=== PATIENT | male | born 1985 | race Caucasian/White ===

== ENCOUNTER 2017-05-17 18:07 | Emergency (ER) | payer SELFPAY ==
[2017-05-17 18:33] VITALS: TEMP 97.5
[2017-05-17] MEDS ORDERED: ACETAMINOPHEN 500 MG TAB PO ONE (18:33)
[2017-05-17] MEDS ORDERED: IBUPROFEN 600 MG TAB PO ONE (18:33)
--- NOTE | 2017-05-17 20:05 | EDPHY ---
H & P Stated Complaint: Sores on feet, L knee pain. Time Seen by Provider: 05/17/17 20:04 - Personal History Current Tetanus/Diphtheria Vaccine: Unsure Current Tetanus Diphtheria and Acellular Pertussis (TDAP): Unsure - Medical/Surgical History Hx Asthma: No Hx Chronic Respiratory Disease: No Hx Diabetes: No Hx Cardiac Disease: No Hx Renal Disease: No Hx Cirrhosis: No Hx Alcoholism: No Hx HIV/AIDS: No Hx Splenectomy or Spleen Trauma: No Other PMH: L ACL/Meniscus/MCL. - Social History Smoking Status: Heavy smoker Constitutional: Initial Vital Signs Temperature (C) 36.4 C 05/17/17 18:29 Heart Rate 98 05/17/17 18:29 Respiratory Rate 18 05/17/17 18:29 Blood Pressure 136/82 H 05/17/17 18:29 O2 Sat (%) 95 05/17/17 18:29 O2 Delivery Mode Room Air Allergies/Adverse Reactions: No Known Allergies Allergy (Unverified 05/17/17 18:33) Home Medications: Medication Instructions Recorded oxyCODONE IR [Oxycodone Ir (*)] 5 - 10 mg PO Q6 PRN #20 tab 05/17/17 Medical Decision Making ED Course/Re-evaluation: CHIEF COMPLAINT: Bilateral foot pain, left knee pain HISTORY OF PRESENT ILLNESS: The patient is a 32 y/o male complaining of sore feet after walking several miles in cowboy boots in the last couple days. He also complains of left knee pain that developed while climbing a ladder. He heard a lot of "popping" as he was descending the ladder and is concerned he reinjured his knee at the site of a previous ACL/MCL repair one year ago. He has been able to walk, but with some pain. He denies any recent illness, fever, or other trauma. REVIEW OF SYSTEMS: A 10 point review of systems was performed and is negative with the exception of the elements mentioned in the history of present illness. PHYSICAL EXAM: HR, BP, O2 Sat, RR. Temp noted General Appearance: Alert, well hydrated, appropriate, and non-toxic appearing. Head: Atraumatic without scalp tenderness or obvious injury Eyes: Pupils equal, round, reactive to light and accommodation, EOMI, no trauma , no injection. Nose: Atraumatic, no rhinorrhea, clear. Throat: Mucus membranes moist. Neck: Supple Respiratory: No retractions, no distress, no wheezes, and no accessory muscle use. Lungs are clear to auscultation bilaterally. Cardiovascular: Regular rate and rhythm, no murmurs, rubs, or gallops. Good capillary refill all extremities. Gastrointestinal: Abdomen is soft, nontender, non-distended, no masses, no rebound, no guarding, no peritoneal signs. Musculoskeletal: Some pain with MCL stress of left knee. Normal active ROM of all extremities, atraumatic. Neurological: Alert, appropriate, and interactive. Nonfocal neuro exam. Skin: No rashes, good turgor, no nodules on palpation. Excoriated skin along plantar aspect of both feet. Past medical history: denies Past surgical history: Left MCL/ACL/meniscus surgery Family history: noncontributory Social history: From [place]. Has a residence. DIFFERENTIAL DIAGNOSIS: The differential diagnosis for the patient's knee injury included but was not limited to fracture, ligamentous injury, contusion, muscular strain, and meniscus injury. MEDICAL DECISION MAKING: This is a 32 y/o male who presents with bilateral foot soreness and left knee pain onset this week. He has some pain with stress of his MCL and has bilateral excoriation of his plantar aspects. No indication for imaging. Plan for knee immobilizer, pain meds, and ortho followup. Return precautions given. He is comfortable with this plan. - Data Points Medications Given: Discontinued Medications Acetaminophen (Tylenol) 1,000 mg PO EDNOW ONE Stop: 05/17/17 18:34 Last Admin: 05/17/17 18:36 Dose: 1,000 mg Ibuprofen (Motrin) 600 mg PO EDNOW ONE Stop: 05/17/17 18:34 Last Admin: 05/17/17 18:36 Dose: 600 mg Departure - Departure Disposition: Home, Routine, Self-Care Clinical Impression: Bilateral foot pain Knee MCL sprain Qualifiers: Encounter type: initial encounter Laterality: left Qualified Code(s): S83.412A - Sprain of medial collateral ligament of left knee, initial encounter ACL sprain Qualifiers: Encounter type: initial encounter Laterality: left Qualified Code(s): S83.512A - Sprain of anterior cruciate ligament of left knee, initial encounter Condition: Good Instructions: Knee Sprain (ED), Knee Immobilizer (ED) Additional Instructions: 1. Take 800mg ibuprofen every 6-8 hours for pain and inflammation for no longer than one week. 2. Use OxyIR for pain uncontrolled by ibuprofen. 3. Wear knee immobilizer for support until follow up with orthopedist. 4. Follow up with Dr. Stratton, orthopedist, in the next week. 5. Follow up with [facility] to establish primary care in the area. Referrals: Dwight Stratton MD [Medical Doctor] - As per Instructions [facility],. [Clinic] - As per Instructions Prescriptions: oxyCODONE IR [Oxycodone Ir (*)] 5 - 10 mg PO Q6 PRN #20 tab PRN Reason: Pain, Severe Report Scribed for: Hunter Crouch Report Scribed by: Ivette Pickard Date of Report: 05/17/17 Time of Report: 20:14
[2017-05-17] MEDS ORDERED: OXYCODONE/APAP 5/325MG PREPACK#4 BTL TAKEHOME ONE (20:12)
[2017-05-17 20:33] VITALS: BP 129/78; PULSE 88; RESP 16; O2SAT 96
== END 2017-05-17 20:33 | disposition home or self-care (01) ==
DX: S83.412A Sprain of medial collateral ligament of left knee, initial encounter (principal); S83.512A Sprain of anterior cruciate ligament of left knee, initial encounter; F17.200 Nicotine dependence, unspecified, uncomplicated; S99.921A Unspecified injury of right foot, initial encounter; S99.922A Unspecified injury of left foot, initial encounter; X58.XXXA Exposure to other specified factors, initial encounter; Y99.8 Other external cause status; Y93.01 Activity, walking, marching and hiking
CPT/HCPCS: L1830

== ENCOUNTER 2017-05-25 14:31 | Emergency (ER) | payer OTHER ==
[2017-05-25] MEDS ORDERED: LORazepam 1 MG TAB PO ONE (14:57)
--- NOTE | 2017-05-25 15:03 | EDPHY ---
H & P Stated Complaint: si, meth use/addiction - Personal History Current Tetanus/Diphtheria Vaccine: Yes - Medical/Surgical History Hx Asthma: No Hx Chronic Respiratory Disease: No Hx Diabetes: No Hx Cardiac Disease: No Hx Renal Disease: No Hx Cirrhosis: No Hx Alcoholism: No Hx HIV/AIDS: No Hx Splenectomy or Spleen Trauma: No Other PMH: L ACL/Meniscus/MCL. meth use - Social History Smoking Status: Heavy smoker HPI/ROS: CHIEF COMPLAINT: Mental Health Evaluation HISTORY OF PRESENT ILLNESS: This patient is a 32 year old male with history of schizophrenia and methamphetamine abuse arriving by cab requesting help with placement to relieve his addiction. He initially visited the chapel here in the hospital around two hours ago, and the soils technician convinced him to present to the emergency department for further assistance. He would like to find a place where he can become stable and take his medication without access to illicit substances. He has been off his medication for schizophrenia, likely around one month, and is unsure of his regular dosage. His last methamphetamine use was this morning. The patient states he has been feeling down and that he has attempted to harm himself in the past by medication overdose. He states he has not attempted to hurt himself today. He states he would not hurt anyone else unless they tried to hurt him. He is feeling paranoid and endorses hearing words which influence his thoughts. He has had various concerns about his surroundings, asking "Why are they out there laughing at me?", "What are you going to do to me?", and " Why is there a camera in here?". He denies any recent illness, cough, cold, or vomiting. REVIEW OF SYSTEMS: A ten point review of systems was performed and is negative with the exception of the items mentioned in the HPI. (Beronica Olivarez) - Medical/Surgical History PMH: 1. Schizophrenia 2. Left ACL/MCL meniscus surgery. (Beronica Olivarez) - Social History Additional Social History: Video Game Designer at bedside. Recently moved from the [facility]. Current methamphetamine abuse. No alcohol use. Current cigarette smoker. (Beronica Olivarez) - Physical Exam Exam: General Appearance: Alert. Vital signs reviewed. Blood pressure 151/109, heart rate 109 at triage. Eyes: Pupils equal and round, no conjunctival injection, no discharge. Anicteric. ENT, Mouth: Mucous membranes are moist, no oropharyngeal erythema or edema. Neck: No lymphadenopathy, supple. Respiratory: Lungs are clear to auscultation; no wheezes, rales, or rhonchi. Cardiovascular: Slightly tachycardic, regular rhythm; no murmur, rub, or gallop. Gastrointestinal: Abdomen is soft and nontender, no masses or organomegaly, bowel sounds normal. Skin: Warm and dry, no rashes on exposed skin, normal color. Back: Nontender to palpation over the thoracolumbar spine. No CVAT. Extremities: No lower extremity edema, no calf tenderness or swelling. Neurological: Alert and oriented. Moving all four extremities easily and equally. Psychiatric: Normal affect. (Beronica Olivarez) Constitutional: Initial Vital Signs Temperature (C) 36.8 C 05/25/17 14:42 Heart Rate 109 H 05/25/17 14:42 Respiratory Rate 16 05/25/17 14:42 Blood Pressure 151/109 H 05/25/17 14:42 O2 Sat (%) 95 05/25/17 14:42 O2 Delivery Mode Room Air Allergies/Adverse Reactions: No Known Allergies Allergy (Unverified 05/17/17 18:33) Home Medications: Medication Instructions Recorded NK [No Known Home Meds] 05/25/17 Medical Decision Making ED Course/Re-evaluation: 32 year old male with history of schizophrenia presents with suicidal ideation following methamphetamine use this morning. 15:20 Placed patient on M1 hold following initial examination. The patient is underactive, under-talkative, and reserved. He is having ideas of being persecuted, feels people are watching him and talking about him, and hearing words which he attaches thoughts to. He has history of schizophrenia, but has been unmedicated for around 1 month. He is cooperative and seems earnest in his desire for help. 1mg PO Ativan administered. He has been placed on a 72 hour hold. I feel that he is, at this time, Gravely disabled nirmal danger to himself. Plan for UA, labs including CBC, BMP, UA tox screen, and EtOH. Plan to administer 10mg PO Zyprexa for symptom relief. The patient may take an additional 1mg PO Ativan if he desires. 17:26 Reassessed patient. 1800: Patient is expressing increasing paranoia. I have talked to him about the fact that he will likely be waiting through the night before mental health evaluation can be performed. His urine drug screen is positive for methamphetamine, which he admits to using. He is requesting help with both his psychiatric illness and his substance abuse. He is being given an additional 2 mg of Ativan. : Evaluation in progress. Patient continues with paranoia. He has been directable. His care will be transferred to Dr. Robles at 9:00 p.m. (Beronica Olivarez) 2100: The patient is signed out to me at change of shift by Dr. Olivarez. Patient is stable at this time. He is awaiting further evaluation. 2300: The patient is signed out to Dr. Glasgow at change of shift. (Chelsey Robles) 11:00 a.m.-this patient was seen and evaluated by mental health. At this point he is calm and cooperative and is not acutely psychotic. He denies homicidal or suicidal ideation. Mental health feels that he is appropriate for outpatient treatment. I agree with this assessment. (Payton Narvaez) Differential Diagnosis: I considered a differential diagnosis that includes but is not limited to substance abuse disorder, psychosis, paranoia, trevor, and depression. (Beronica Olivarez) Care Turn Over: 0 care assumed by me from Dr. Robles pending mental health evaluation and metabolism of the methamphetamine. [address] Narvaez pending mental health evaluation. (Jb Glasgow) - Data Points Laboratory Results: Laboratory Results 05/25/17 15:40 05/25/17 15:40 Medications Given: Discontinued Medications Lorazepam (Ativan) 2 mg PO EDNOW ONE Stop: 05/25/17 14:58 Last Admin: 05/25/17 15:19 Dose: 2 mg Lorazepam (Ativan) 2 mg PO EDNOW ONE Stop: 05/25/17 18:06 Last Admin: 05/25/17 19:49 Dose: 2 mg Olanzapine (Olanzapine) 10 mg PO ONCE ONE Stop: 05/25/17 15:25 Last Admin: 05/25/17 15:57 Dose: 10 mg Olanzapine (Zyprexa Zydis) 10 mg PO EDNOW ONE Stop: 05/25/17 21:32 Last Admin: 05/25/17 21:44 Dose: 10 mg Departure - Departure Disposition: Home, Routine, Self-Care Clinical Impression: Acute psychosis, Polysubstance abuse Condition: Good Instructions: Methamphetamine Abuse (ED), Suicide Prevention for Adults (ED) Referrals: NONE *PRIMARY CARE P,. [Primary Care Provider] - As per Instructions Report Scribed for: Beronica Olivarez Report Scribed by: Laina Hutchinson Date of Report: 05/25/17 Time of Report: 15:10 Physician Review and Approval Statement: 05/25/17 15:03 Portions of this note were transcribed by the medical apparatus model maker. I, Dr. Beronica Olivarez, personally performed the history, physical exam, and medical decision- making; and confirmed the accuracy of the information in the transcribed note. ( Beronica Olivarez)
[2017-05-25] MEDS ORDERED: OLANZapine 10 MG TAB PO ONE (15:24)
[2017-05-25] MEDS ORDERED: OLANZapine 5 MG TAB ONE ×2 (15:32→18:02)
[2017-05-25 15:58] LABS: % IMMATURE GRANULYOCYTES 0.4 % (0.0-1.1); ABSOLUTE IMMATURE GRANULOCYTES 0.04 10^3/uL (0.00-0.10); ADD DIFF? NO; ADD MORPH? NO; ADD SCAN? YES; ATYPICAL LYMPHOCYTE FLAG 10 (0-99); FRAGMENT RBC FLAG 0 (0-99); HEMATOCRIT 46.5 % (40.0-51.0); HEMOGLOBIN 16.3 g/dL (13.7-17.5); LEFT SHIFT FLG 0 (0-99); LIPEMIA HEMOLYSIS FLAG 90 (0-99); MEAN CELL HEMOGLOBIN 30.8 pg (27.9-34.1); MEAN CELL HEMOGLOBIN CONCENTR. 35.1 g/dL (32.4-36.7); MEAN CELL VOLUME 87.9 fL (81.5-99.8); MEAN PLATELET VOLUME 10.1 fL (8.7-11.7); PLATELET COUNT 254 10^3/uL (150-400); RED BLOOD CELL COUNT 5.29 10^6/uL (4.40-6.38)
[2017-05-25 15:59] LABS: PLATELET CLUMPS FLAG 300 (0-99)
[2017-05-25 16:30] LABS: SCAN NEGATIVE
[2017-05-25 16:42] LABS: ANION GAP 18 mEq/L (8-16); CALCIUM 10.3 mg/dL (8.5-10.4); CARBON DIOXIDE 15 mEq/l (22-31); CHLORIDE 108 mEq/L (97-110); CREATININE 0.9 mg/dL (0.7-1.3); ETHANOL SERUM < 10 mg/dL (0-10); GLOMERULAR FILTRATION RATE > 60; GLUCOSE 111 mg/dL (70-100); POTASSIUM 4.3 mEq/L (3.5-5.2); SODIUM 141 mEq/L (134-144); SPECIMEN HEMOLYSIS 108
[2017-05-25] MEDS: LORazepam 1 MG TAB PO ONE ×2 (18:32→19:49)
[2017-05-25] MEDS ORDERED: NICOTINE 21 MG/24 HR PATCH TD ONE (18:43)
[2017-05-25] MEDS ORDERED: NICOTINE POLACRILEX 2 MG GUM B ONE (18:43)
[2017-05-25] MEDS ORDERED: LORazepam 1 MG TAB ONE (19:35)
[2017-05-25] MEDS ORDERED: OLANZapine DISINTEGR 10 MG TAB ONE ×2 (21:18→21:30)
[2017-05-25] MEDS ORDERED: OLANZapine DISINTEGR 10 MG TAB PO ONE (21:31)
[2017-05-25 22:57] VITALS: RESP 16; TEMP 97.9
[2017-05-26 11:26] VITALS: BP 138/93; PULSE 94; O2SAT 98
== END 2017-05-26 11:26 | disposition home or self-care (01) ==
DX: F23 Brief psychotic disorder (principal); F19.10 Other psychoactive substance abuse, uncomplicated; F17.200 Nicotine dependence, unspecified, uncomplicated
CPT/HCPCS: 80305; G0480

== ENCOUNTER 2017-05-26 22:46 | Emergency (ER) | payer OTHER ==
[2017-05-26] MEDS ORDERED: LORazepam 1 MG TAB PO ONE (22:56)
--- NOTE | 2017-05-26 22:59 | EDPHY ---
H & P - Medical/Surgical History Hx Asthma: No Hx Chronic Respiratory Disease: No Hx Diabetes: No Hx Cardiac Disease: No Hx Renal Disease: No Hx Cirrhosis: No Hx Alcoholism: No Hx HIV/AIDS: No Hx Splenectomy or Spleen Trauma: No Other PMH: L ACL/Meniscus/MCL. meth use - Social History Smoking Status: Heavy smoker HPI/ROS: Chief Complaint: Paranoid, agitated, meth use HPI: 32-year-old male with a history of chronic meth use and associated paranoia is [facility] complaining of being paranoid and withdrawing from meth. Patient was seen in this emergency department last night after becoming paranoid and using meth. He had a mental health evaluation this morning at which time he was calm and was not feeling paranoid. He was discharged home and states that he proceeded to go out and use meth again today. He does not want to go to the [facility] because he is afraid someone there is going to kill him. He is feeling very paranoid now. States he has had multiple episodes of the same when he uses meth. Has never felt this way when he has not been using. Was clean for a month up to about a week ago. Denies any recent injuries. No fevers or chills. Is not currently feeling suicidal or homicidal. ROS: 10 point Review of Systems is negative except as noted in the HPI. PMH: Methamphetamine abuse Social History: Positive smoking, positive alcohol, positive for methamphetamine use Family History: non-contributory Physical Exam: Gen: Awake, Alert, anxious, agitated mildly HEENT: Nose: no rhinorrhea Eyes: PERRLA, EOMI Mouth: Moist mucosa Neck: Supple, no JVD Chest: nontender, lungs clear to auscultation Heart: S1, S2 normal, no murmur Abd: Soft, non-tender, no guarding Back: no CVA tenderness, no midline tenderness Ext: no edema, non-tender Skin: no rash Neuro: CN II-XII intact, Sensation grossly intact, Strength 5/5 in bilateral upper and lower extremities (Jb Glasgow) Constitutional: Initial Vital Signs Temperature (C) 37.7 C 05/26/17 23:00 Heart Rate 103 H 05/26/17 23:00 Respiratory Rate 18 05/26/17 23:00 Blood Pressure 172/105 H 05/26/17 23:00 O2 Sat (%) 98 05/26/17 23:00 O2 Delivery Mode Room Air Allergies/Adverse Reactions: No Known Allergies Allergy (Verified 05/26/17 23:33) Home Medications: Medication Instructions Recorded NK [No Known Home Meds] 05/25/17 Medical Decision Making ED Course/Re-evaluation: Patient has required multiple doses of Zyprexa and Ativan to calm him down. He has received a total 20 mg of Zyprexa and 8 mg of Ativan . He is now resting comfortably. Plan will be for discharge to home when he is metabolize the methamphetamine and is no longer paranoid. Patient was seen yesterday for the same presentation and had a mental health evaluation and was deemed safe after he cleared his meth. Care transferred to Dr. Crouch pending metabolism of methamphetamine and not paranoid. (Jb Glasgow) This patient was turned over to hi at shift change. This patient is awake alert and back at baseline. We will discharge him now. (Hunter Crouch) - Data Points Medications Given: Discontinued Medications Sodium Chloride (Ns) 1,000 mls @ 0 mls/hr IV ONCE ONE PRN Reason: Wide Open Stop: 05/27/17 03:48 Last Admin: 05/27/17 03:49 Dose: 1,000 mls Lorazepam (Ativan) 2 mg PO EDNOW ONE Stop: 05/26/17 22:57 Last Admin: 05/26/17 23:00 Dose: 2 mg Lorazepam (Ativan) 1 mg PO EDNOW ONE Stop: 05/27/17 01:44 Last Admin: 05/27/17 01:46 Dose: 1 mg Lorazepam (Ativan) 2 mg PO EDNOW ONE Stop: 05/27/17 02:33 Last Admin: 05/27/17 02:59 Dose: 2 mg Lorazepam (Ativan Injection) 2 mg IVP EDNOW ONE Stop: 05/27/17 02:49 Last Admin: 05/27/17 02:58 Dose: 2 mg Lorazepam (Ativan Injection) 2 mg IVP EDNOW ONE Stop: 05/27/17 03:41 Last Admin: 05/27/17 03:45 Dose: 2 mg Nicotine (Nicoderm Cq) 21 mg TD EDNOW ONE Stop: 05/27/17 02:40 Last Admin: 05/27/17 02:35 Dose: 21 mg Olanzapine (Olanzapine) 10 mg PO ONCE ONE Stop: 05/26/17 23:14 Last Admin: 05/26/17 23:26 Dose: 10 mg Olanzapine (Olanzapine) 5 mg PO ONCE ONE Stop: 05/27/17 00:51 Last Admin: 05/27/17 01:05 Dose: 5 mg Olanzapine (Zyprexa Zydis) 5 mg PO EDNOW ONE Stop: 05/27/17 01:44 Last Admin: 05/27/17 01:46 Dose: 5 mg Olanzapine (Zyprexa Zydis) 5 mg PO EDNOW ONE Stop: 05/27/17 02:33 Last Admin: 05/27/17 02:35 Dose: 5 mg Departure - Departure Disposition: Home, Routine, Self-Care Clinical Impression: Methamphetamine abuse Condition: Good Instructions: Methamphetamine Abuse (ED) Additional Instructions: Please seek help to stop using methamphetamine. Referrals: NONE *PRIMARY CARE P,. [Primary Care Provider] - As per Instructions
[2017-05-26] MEDS ORDERED: OLANZapine 10 MG TAB PO ONE (23:13)
[2017-05-26] MEDS ORDERED: OLANZapine 5 MG TAB ONE (23:23)
[2017-05-27] MEDS ORDERED: OLANZapine 5 MG TAB PO ONE (00:50)
[2017-05-27] MEDS ORDERED: LORazepam 1 MG TAB ONE ×2 (01:38→01:55)
[2017-05-27] MEDS ORDERED: OLANZapine DISINTEGR 5 MG TAB ONE (01:38)
[2017-05-27] MEDS ORDERED: LORazepam 1 MG TAB PO ONE ×2 (01:43→02:32)
[2017-05-27] MEDS ORDERED: OLANZapine DISINTEGR 5 MG TAB PO ONE ×2 (01:43→02:32)
[2017-05-27] MEDS ORDERED: NICOTINE 21 MG/24 HR PATCH TD ONE ×2 (02:02→02:39)
[2017-05-27] MEDS ORDERED: LORazepam 2 MG/ML INJ ONE (02:34)
[2017-05-27] MEDS ORDERED: LORazepam 2 MG/ML INJ IVP ONE ×2 (02:48→03:40)
[2017-05-27] MEDS ORDERED: NS 1,000 ML IV ONE (03:47)
[2017-05-27 10:02] VITALS: BP 123/71; PULSE 95; RESP 18; TEMP 97.5; O2SAT 97
== END 2017-05-27 10:02 | disposition home or self-care (01) ==
LOC: EDUNIT#
DX: F15.10 Other stimulant abuse, uncomplicated (principal); F17.200 Nicotine dependence, unspecified, uncomplicated
CPT/HCPCS: 96361; 96374; 96376; 99284; J2060

== ENCOUNTER 2017-06-21 18:57 | Emergency (ER) | payer OTHER ==
[2017-06-21 19:01] VITALS: O2SAT 95
[2017-06-21] MEDS ORDERED: PENICILLIN VK 250MG PREPACK#6 BTL TAKEHOME ONE (20:18)
[2017-06-21] MEDS ORDERED: HYDROCOD/APAP 5/325 PREPACK#6 BTL TAKEHOME ONE (20:18)
--- NOTE | 2017-06-21 20:19 | EDPHY ---
H & P Time Seen by Provider: 06/21/17 19:13 HPI/ROS: CHIEF COMPLAINT: toothache HISTORY OF PRESENT ILLNESS: 32-year-old male presents emergency department complaining of a toothache x1 month. Patient reports it has been intermittent and worsening recently. Ibuprofen is not helping. He denies fevers or chills. Patient reports drainage of pus around tooth. No difficulty breathing or swallowing. Patient states he has called multiple dentists office and they will not see him until he has already been taking antibiotics. He is a cigarette smoker. Smoking Status: Heavy smoker Physical Exam: GEN: Awake, alert, oriented, no acute distress RESP: nl resp effort HEENT: Poor dentition, left lower anterior molar with dental caries, mild erythema to gum line, no drainage, no obvious abscess. Uvula midline, no peritonsillar abscess MSK: Normal appearing SKIN: No rash or break in skin. Constitutional: Initial Vital Signs Temperature (C) 37.1 C 06/21/17 18:59 Heart Rate 117 H 06/21/17 18:59 Respiratory Rate 20 06/21/17 18:59 Blood Pressure 134/94 H 06/21/17 18:59 O2 Sat (%) 95 06/21/17 18:59 O2 Delivery Mode Room Air Allergies/Adverse Reactions: No Known Allergies Allergy (Verified 06/21/17 18:58) Home Medications: Medication Instructions Recorded Penicillin V Potassium [Pen Vk] 500 mg PO Q6H 9 Days 06/21/17 MDM/Departure - Depart Disposition: Home, Routine, Self-Care Clinical Impression: Toothache Condition: Good Instructions: Penicillin V (By mouth), Hydrocodone/Acetaminophen (By mouth), Dental Abscess (ED), Toothache (ED) Additional Instructions: Take 500 mg of penicillin 4 times a day for 10 days. Take 600 mg of ibuprofen every 8 hours with food for 3-5 days. Take 1 Vicodin every 6-8 hours as needed for severe pain. Warm compresses to your face 5 times a day for 5-10 minutes. Follow up with the dentist at 1st available appointment. Return to the emergency department for facial swelling, fevers, difficulty breathing or swallowing, new symptoms or concerns. Prescriptions: Penicillin V Potassium [Pen Vk] 500 mg PO Q6H 9 Days Referrals: [facility] [Outside] - As per Instructions [facility] [Outside] - As per Instructions [facility] [Outside] - As per Instructions [facility] [Outside] - As per Instructions [facility] [Outside] - As per Instructions
[2017-06-21 20:52] VITALS: BP 130/70; PULSE 92; RESP 18; TEMP 97.9
== END 2017-06-21 20:51 | disposition home or self-care (01) ==
DX: K08.89 Other specified disorders of teeth and supporting structures (principal); F17.200 Nicotine dependence, unspecified, uncomplicated